=== PATIENT | female | born 1990 | race African-American/Black ===

== ENCOUNTER 2016-05-15 23:12 | Inpatient (IN) | payer OTHER ==
--- NOTE | ~2016-05-15 | HP ---
Unit #: [id number] #: [id number] Patient: SARAH BETH RHODES [id number] [address] [place], [place] [address] [id number] I MR#: [id number] NAME: SARAH BETH RHODES ROOM: [facility] Age: 25 Sex: F Admission Date: 05/16/2016 : 1990 Attending Physician: Chika Parry M.D. Primary Care Physician: [facility] HISTORY AND PHYSICAL ADDENDUM I spoke with Dr. Mendez's group, and ventilator is currently being adjusted. Will keep the patient's temperature about 95 degrees. The patient's mother arrived. I discussed with the mother and family present the results of the CT scan. I told them the patient's prognosis was poor, that she likely would not survive. I also told them that she was likely brain at this time but would have neurology see her in the morning. Critical care time spent in evaluating this patient was 40 minutes. Dictated by Gretchen Law/romina TD: 05/16/2016 05:04 JOB #: [id number] HISTORY AND PHYSICAL X Chika Parry MD HISTORY AND PHYSICAL
--- NOTE | ~2016-05-15 | DS ---
Unit #: [id number] #: [id number] Patient: SARAH BETH GAITAN [id number] [address] [address] [id number] I MR#: [id number] NAME: SARAH BETH GAITAN. ROOM: [facility] Age: Sex: F Admission Date: 05/16/2016 : 1990 Discharge Date: 05/17/2016 Attending Physician: Krystle Watson M.D. Primary Care Physician: [facility] DISCHARGE SUMMARY SUMMARY PRINCIPAL DIAGNOSES 1. Brain secondary to sever anoxic brain injury. 2. Acute hypoxic respiratory failure. 3. Mixed respiratory metabolic acidosis, severe. 4. Polysubstance overdose, including opiates, cocaine, benzodiazepines and TCAs. 5. Hypernatremia. 6. Shock liver. 7. Hypothermia. 8. Subarachnoid hemorrhage. 9. Persistent hypoglycemia. CONSULTANTS Dr. Brnanon, neurology. Dr. Mendez, pulmonology. DIAGNOSTIC DATA IMAGING: CT scan of the head without contrast on 05/16/2016 with loss of telles/white matter differentiation and effacement of the basilar cistern. Subarachnoid hemorrhage associated with cerebellar regions bilaterally. Multiple x-rays revealing right and left basilar pneumonia. Brain perfusion imaging with lack of intracranial blood flow. CLINICAL HISTORY/HOSPITAL COURSE Ms. Gaitan is a 25-year-old female brought to the emergency department after being found unresponsive and pulseless at home. The patient went a total of six rounds of cardiopulmonary resuscitation prior to regaining pulse. She had been intubated in the field and was subsequently admitted to the ICU. During workup in the emergency department the patient was found to have significant mixed respiratory and metabolic acidosis with a pH of 6.[address] scan of the head in the emergency department revealed significant anoxic brain injury with loss of telles/white matter differentiation. The patient clinically demonstrated signs of significant brain . The patient was maintained on the ventilator per Dr. Mendez and placed on empiric antibiotics for pneumonia. Dr. Brannon was consulted and per family's wishes the patient underwent Unit #: [id number] #: [id number] Patient: SARAH BETH GAITAN brain perfusion study, which did not reveal any intracranial brain flow, which was consistent with the patient's exam. This has all been discussed with the patient's family. The patient subsequently on 05/16/2016 at 14:19 in the afternoon. Dictated by... Krystle Watson M.D. ALAINA/carlos TD: 05/18/2016 10:52 JOB #: [id number] DISCHARGE SUMMARY X Krystle Watson MD X DISCHARGE SUMMARY
--- NOTE | ~2016-05-15 | CR72 ---
[facility] A Service of [facility] & [facility] RADIOLOGY TEXT RESULTS PATIENT: SARAH BETH RHODES LOCATION: [address] : [birth year] UNIT #: [id number] AGE: [address]: Krystle Watson MD SEX: F ORDER DR: [id number] [facility] [address] [place], [place] [address] [id number] I MR#: [id number] Acc #: [id number] NAME: SARAH BETH RHODES. : 1990 SEX: F STUDY DATE/TIME: 05/16/2016 6:41 UNIT: [facility] ROOM: [facility] STUDY DESCRIPTION: CR Chest Single View Portable Attending Physician: Chika Parry M.D. Ordering Physician: Chika Parry M.D. [facility] REPORT This report is preliminary unless electronic signature is present EXAM Portable chest 05/16 INDICATIONS Respiratory failure. History of resuscitated arrest status post overdose. FINDINGS AP portable chest compared with 05/15/2016. Endotracheal tube is in the right mainstem bronchus and should be retracted about 3 cm. There is continued dense consolidation in the left hhs-ku-wvnus lung and there is developing infiltrate in the right middle lobe. This could certainly be secondary to aspiration. No pneumothorax is seen. Dictated by... Gama Gray Jr., M.D. THIS IS AN ELECTRONICALLY VERIFIED REPORT Gama Gray Jr., M.D. at 05/16/2016 7:34 AM ANGELIA/flor TD: 05/16/2016 07:12 JOB #: [id number] MEDICAL IMAGING REPORT COPY
--- NOTE | ~2016-05-15 | EKG ---
PATIENT: SARAH BETH RHODES UNIT #: [id number] Ventricular Rate: 79 BPM Atrial Rate: 79 BPM P-R Interval: 192 ms QRS Duration: 136 ms Q-T Interval: 440 ms QTC Calculation(Bezet): 504 ms P Edmondson: 84 degrees Calculated R Edmondson: 64 degrees Calculated T Edmondson: 14 degrees Diagnosis Line: Normal sinus rhythm Diagnosis Line: Non-specific intra-ventricular conduction block Diagnosis Line: Abnormal ECG Diagnosis Line: No previous ECGs available Diagnosis Line: Confirmed by SITA ALEJANDRO MD ([id number]) on Diagnosis Line: 05/16/2016 2:49:47 PM INTERPRETING MD: FERNANDA
--- NOTE | ~2016-05-15 | CR71 ---
[facility] A Service of [facility] & [facility] RADIOLOGY TEXT RESULTS PATIENT: SARAH BETH RHODES LOCATION: [facility] CICCU3-20 : 90 UNIT #: [id number] AGE: [address]: Chika Parry MD SEX: F ORDER DR: [id number] [facility] [address] [place], [place] [address] [id number] E MR#: [id number] Acc #: [id number] NAME: SARAH BETH RHODES. : 1990 SEX: F STUDY DATE/TIME: 05/15/2016 23:54 UNIT: [facility] ROOM: STUDY DESCRIPTION: CR Chest Single View Attending Physician: Pedro Gutierrez M.D. Ordering Physician: Pedro Gutierrez M.D. Primary Care Physician: [facility] MEDICAL IMAGING REPORT This report is preliminary unless electronic signature is present EXAM Frontal chest, 05/15/2016 INDICATIONS 25-year-old female intubated, full arrest, overdose, found down. Symptoms began tonight. TECHNIQUE Frontal chest was performed. COMPARISON 05/01/2016 FINDINGS Transcutaneous pacemaker pad projects over the right hemithorax. ET tube tip is difficult to localize with respect to the thais. It is probably about 1.5 cm proximal to the level of the thais. Lung volumes are low. There is dense consolidation in the retrocardiac left lower lobe and there is a small left effusion. Air bronchograms are present in the lower lung zone and mid lung zone. Given the provided history, this may represent aspiration pneumonia and a superimposed effusion. No pneumothorax. No consolidation on the right. Postop changes of the clavicular head on the left noted. IMPRESSION 1. Relationship of the ET tube tip and thais is difficult to ascertain, but the tip is thought to be about 1.5 cm above the level of the thais. No pneumothorax. 2. Dense consolidation in the left lower lobe and, to a lesser extent, mid lung zone with a small left effusion. Imaging features are most characteristic of pneumonia and suspicious for aspiration pneumonia given provided history. 3. Right lung is essentially clear. Postop changes of the medial STS. [facility] A Service of [facility] & [facility] RADIOLOGY TEXT RESULTS PATIENT: SARAH BETH RHODES LOCATION: [address]20 : [birth year] UNIT #: [id number] AGE: [address]: Chika Parry MD SEX: F ORDER DR: clavicle on the left. STAT * RESULT Dictated by... Don Ramirez M.D. THIS IS AN ELECTRONICALLY VERIFIED REPORT Don Ramirez M.D. at 05/16/2016 5:18 AM LEANN/karen TD: 05/16/2016 00:18 JOB #: [id number] MEDICAL IMAGING REPORT COPY
--- NOTE | ~2016-05-15 | CR72 ---
[facility] A Service of [facility] & [facility] RADIOLOGY TEXT RESULTS PATIENT: SARAH BETH RHODES LOCATION: [address]20 : [birth year] UNIT #: [id number] AGE: [address]: Krystle Watson MD SEX: F ORDER DR: [id number] [facility] [address] [place], [place] [address] [id number] I MR#: [id number] Acc #: [id number] NAME: SARAH BETH RHODES. : 1990 SEX: F STUDY DATE/TIME: 05/16/2016 9:10 UNIT: [facility] ROOM: [facility] STUDY DESCRIPTION: CR Chest Single View Portable Attending Physician: Krystle Watson M.D. Ordering Physician: Katharine Mendez M.D. Primary Care Physician: [facility] MEDICAL IMAGING REPORT This report is preliminary unless electronic signature is present EXAM Portable chest 05/16/2016 INDICATION Endotracheal tube placement. Shortness of air. Respiratory failure. Status post overdose. FINDINGS AP portable chest compared with earlier this morning. Endotracheal tube has been repositioned. It is now above the thais. There is still some infiltrate in the left xlt-bj-euksj lung and to a lesser degree in the right base. No pneumothorax is seen. Lucency projects over the left breast. Please correlate for any evidence of soft tissue injury. Dictated by... Gama Gray Jr., M.D. THIS IS AN ELECTRONICALLY VERIFIED REPORT Gama Gray Jr., M.D. at 05/16/2016 3:08 PM ANGELIA/hemal TD: 05/16/2016 10:51 JOB #: [id number] MEDICAL IMAGING REPORT COPY
--- NOTE | ~2016-05-15 | CO ---
Unit #: [id number] #: [id number] Patient: SARAH BETH RHODES [id number] [facility] [address] [place], [place] [address] [id number] I MR#: [id number] NAME: SARAH BETH RHODES. ROOM: [facility] Age: 25 Sex: F Admission Date: 05/16/2016 : 1990 Attending Physician: Krystle Watson M.D. Primary Care Physician: [facility] Consultation Date: 05/16/2016 CONSULTATION REPORT CONSULTING PHYSICIAN Dr. Chika Parry REASON FOR CONSULT Questionable brain . PATIENT IDENTIFICATION This is a 25-year-old, unknown handedness, -Nepalese female with a past medical history of CVA in March 2016, polysubstance abuse, who presented to [facility] with admission for resuscitated arrest. Apparently, the patient was last seen normal around 9 p.m. last evening and she was found at 10:30 to be unresponsive by, I'm assuming family or friends though I don't know the details. EMS was called and the patient was found to be in asystole. EMS started CPR and ALS, intubated the patient in the field. She apparently developed ventricular tachycardia and ventricular fibrillation that required defibrillation five times. She did achieve ROSC en route. She was brought to [facility] ER at 11 p.m. and lost her pulse again at that time. She was resuscitated for five minutes in this emergency room. She has not received any sedation. She is on pressors. She is having trouble maintaining her blood pressure. She is hypoglycemic. She was initially hyperglycemic. She is hypothermic and she is on a Brandon hugger and she is tachycardic. On her neurologic exam, she has no response to noxious stimuli. Cecilia Coma Scale of 2T. No corneals, no oculocephalic reflex. Pupils are 5 mm and fixed, and no response to noxious stimuli with very deep nail bed pressure. Urine tox screen is positive for benzodiazepines, cocaine, opiates and TCA. She had a head CT done in the ED that shows evidence of severe anoxic brain injury and likely subarachnoid hemorrhage involving the bilateral cerebellar folia. Call was made to [facility] but she is not felt to be a candidate for intervention given her poor prognosis. PAST MEDICAL HISTORY 1. Hypertension. 2. Polysubstance abuse with previous multiple overdoses including one recent as 24 hours ago when she was seen at [facility] apparently. 3. CVA at [facility] in March 2016. Looking in [place], she had a negative CT angiogram of the head and neck with no evidence of aneurysm at that time. 4. Hyperlipidemia. Unit #: [id number] #: [id number] Patient: SARAH BETH RHODES 5. Surgery for left clavicular fracture. ALLERGIES No known drug allergies. HOME MEDICATIONS Unknown. SOCIAL HISTORY Apparently she does not smoke tobacco or use alcohol but has a history of polysubstance abuse and multiple overdoses. FAMILY HISTORY Unknown. REVIEW OF SYSTEMS Unable to obtain from the patient given her mental status. PHYSICAL EXAMINATION VITAL SIGNS: Temperature - she is 94.6 with last documentation. She is on a Brandon hugger. Pulse 133, respirations 28, blood pressure 91/53 on multiple pressors. Oxygen saturation 91% on the ventilator. Height 5 feet 1 inch, weight 152 pounds. NEUROLOGICAL EXAM: The patient is unresponsive on the ventilator. Cecilia Coma Scale of 2T. She has no response to noxious stimuli. No brain stem reflexes. CRANIAL NERVE EXAM: She has negative oculocephalic reflex. Negative corneals. Pupils are 5 mm and fixed. Unable to assess sensation on the face and scalp. No facial asymmetry seen. Unable to assess hearing, tongue, uvula or palate, head turning or shoulder shrug. Neck appears to be supple. MOTOR EXAM: She is flaccid with no response to noxious stimuli in all extremities. COORDINATION: Unable to assess. DIAGNOSTIC STUDIES IMAGING: CT head without contrast on 05/16/16. Impression - per radiologist's report, abnormal examination. Imaging features are most characteristic of anoxic brain injury and loss of telles-white differentiation. Significant effacement of the basilar cisterns. At this point, no midline shift or hydrocephalus. Probable subarachnoid hemorrhage associated with the cerebellar folia bilaterally. No extraaxial fluid collection identified. Multifocal sinus disease. LABORATORY: Max troponin of 0.40, sodium 153, potassium 3.9, chloride 117, CO2 26, glucose 77, BUN 13, creatinine 1.1, estimated GFR above 60, calcium 8.3, AST 290, ALT 195, alkaline phos. 67, total protein 6.4, albumin 3.3. White blood cell count 5.5, hemoglobin 11.6, hematocrit 35.1, platelet count 308, lactic acid 5.2. Urine drug screen positive for benzodiazepines, cocaine, opiates and TCA. Initial lactic acid 10.7. Beta hcg screen negative. Initial troponin less than 0.05. Unit #: [id number] #: [id number] Patient: SARAH BETH RHODES IMPRESSION 1. Severe anoxic brain injury. 2. Status post resuscitated arrest. 3. Likely subarachnoid hemorrhage, no evidence of aneurysm seen on CT angiogram from March 2016 at [facility]. 4. History of cerebrovascular accident, details unknown. 5. Polysubstance abuse. 6. Acute kidney injury. PLAN Discussed the case with Dr. Brannon. Discussed with the mother at the bedside. Prognosis is very poor at this time given clinical exam and imaging. We will follow along with you closely. The patient is very critical. She is currently a Full Code. I did discuss code status with the patient's mother at the bedside and at this time she is currently a Full Code. Please call for any questions or issues. We thank you very much for allowing us to assist in the care of this patient. Dictated by... Julio WhitingPRobertoRArmen. for James Brannon M.D. SANJAY/romina TD: 05/16/2016 11:25 JOB #: [id number] CONSULTATION REPORT X Malena Mary APRN X CONSULTATION REPORT
--- NOTE | ~2016-05-15 | NM13 ---
[facility] A Service of [facility] & [facility] RADIOLOGY TEXT RESULTS PATIENT: SARAH BETH RHODES LOCATION: [place] [address]-20 : [birth year] UNIT #: [id number] AGE: [address]: Krystle Watson MD SEX: F ORDER DR: [id number] [facility] [address] [place], [place] [address] [id number] I MR#: [id number] Acc #: [id number] NAME: SARAH BETH RHODES. : 1990 SEX: F STUDY DATE/TIME: 05/16/2016 14:07 UNIT: [facility] ROOM: [facility] STUDY DESCRIPTION: OR Brain Imaging [facility] Flow Attending Physician: Krystle Watson M.D. Ordering Physician: Krystle Watson M.D. Primary Care Physician: [facility] MEDICAL IMAGING REPORT This report is preliminary unless electronic signature is present EXAM Nuclear medicine brain imaging for flow. HISTORY Recent cardiac arrest with resuscitation. Evaluate for brain . TECHNIQUE The patient was bolus injected with 27.9 mCi of technetium 99m DTPA. Imaging was performed over the head in multiple projections. FINDINGS No intracranial flow is seen. Findings consistent with brain . IMPRESSION No intracranial flow is identified. STAT * RESULT Dictated by... Gama Ramos M.D. THIS IS AN ELECTRONICALLY VERIFIED REPORT Gama Ramos M.D. at 05/16/2016 4:10 PM ANGE/rikki TD: 05/16/2016 14:26 JOB #: [id number] MEDICAL IMAGING REPORT COPY
--- NOTE | ~2016-05-15 | HP ---
Unit #: [id number] #: [id number] Patient: SARAH BETH RHODES [id number] [place] [address] [facility]. [place], [place] [address] [id number] I MR#: [id number] NAME: SARAH BETH RHODES. ROOM: [facility] Age: 25 Sex: F Admission Date: 05/16/2016 : 1990 Attending Physician: Chika Parry M.D. Primary Care Physician: [facility] HISTORY AND PHYSICAL CHIEF COMPLAINT Resuscitated arrest. HISTORY This 25-year-old female with hypertension, history of CVA per family, and polysubstance abuse is admitted as a resuscitated arrest. Patient was last seen normal around 9:00 p.m. last evening. At 10:30 p.m., she was unarousable. EMS was called and the patient was found to be in asystole. She was treated by EMS, intubated in the field, and developed ventricular tachycardia and ventricular fibrillation requiring defibrillation x5. Achieved ROSC en route. She was brought to this emergency department at 11:00 p.m. last evening, lost her pulse again. Was resuscitated after five minutes in the ER. Currently, on examination, the patient is hypotensive, hypothermic, and has no brainstem reflexes. In reviewing her lab data, she is hyperglycemic, which is new, and has a severe metabolic and respiratory acidosis. Urine tox screen is positive for multiple substances including benzos, cocaine, opiates, and TCA. Head CT performed shows evidence of anoxic brain injury and probable subarachnoid hemorrhage, bilateral cerebellar folia. A call currently is made to neurosurgery, but the patient is essentially brain at this point on exam. Family tells me the patient does have a history of polysubstance abuse and has overdosed four times over the past six months or so. Was seen 24 hours ago at the [facility] after an overdose and was discharged after observation. The ER physician did speak with neurosurgery at [facility] given findings on current CT scan. The patient, at this point in time, is brain and has evidence of extensive anoxic injury of the brain on CT scan. It is unsure whether or not there truly is a subarachnoid hemorrhage, but in any event, the patient is a nonsurgical candidate. PAST MEDICAL HISTORY 1. Hypertension per old records. 2. Polysubstance use with previous overdoses. 3. Previous CVA at [facility], 03/2016. Details are unknown. 4. Hyperlipidemia. 5. Surgery for left clavicular fracture. ALLERGIES No known drug allergies. Unit #: [id number] #: [id number] Patient: SARAH BETH RHODES HOME MEDICATIONS Unknown, possibly Neurontin and possible antihypertensive medications. FAMILY HISTORY Negative for heart disease. SOCIAL HISTORY The patient is living between family members. She does not smoke or use alcohol. Does have a history of drug abuse, particularly heroin. REVIEW OF SYSTEMS Impossible to obtain as patient currently is unresponsive on a ventilator. PHYSICAL EXAMINATION GENERAL APPEARANCE: Unresponsive, 25-year-old female on a ventilator. VITAL SIGNS: Temperature 87.6, pulse is 67, current blood pressure is 98/55 on Levophed, and O2 saturation 91% on 100% FIO2. HEENT: Eyes: Pupils are dilated and do not react. Negative doll's and negative corneals. Pharynx: Patient is orally intubated. NECK: Supple. CHEST: Some rhonchi noted. CARDIAC: Normal S1 and S2 without murmur. ABDOMEN: Bowels sounds are absent. Mildly distended, but no tenderness, hepatosplenomegaly, or masses. EXTREMITIES: Without edema. NEUROLOGIC: The patient is unresponsive on a ventilator. She is not breathing above the ventilator. She does not have a gag. Her pupils are fixed and dilated and no corneals or doll's. Plantar reflexes are not present. She does not react to noxious stimuli. DIAGNOSTIC STUDIES ADMISSION LABORATORY: Hematocrit is 29.4, MCV 101, white blood count 14.3, and normal platelet count. INR is 1.3 and PTT is 27.8. SMA-12: Glucose is 497, creatinine 1.7, CO2 20, calcium 7.5, protein 4.9, albumin is 2.6, AST 177, and ALT 147. Lactic acid is 10.7. Beta HCG is negative. Cardiac markers are negative. Urine tox screen positive for benzos, cocaine, opiates, and TCA. Urinalysis: 2+ protein without white cells or red cells. ABG: pH 6.86, pCO2 77, pO2 358 on a tidal volume of 500, AC 12, FIO2 100%, and PEEP of 5. IMAGING: Chest x-ray suspicious for aspiration pneumonia, left greater than right. Head CT shows evidence of anoxic brain injury. Probable subarachnoid hemorrhage bilateral cerebellar folia. CARDIOVASCULAR: EKG: Normal sinus rhythm, rate 80, nonspecific ST wave abnormalities, and interventricular conduction delay. ASSESSMENT 1. Resuscitated arrest, likely secondary to a drug overdose. There are no brainstem reflexes at present. 2. Possible brain following resuscitated arrest. CT scan shows extensive anoxic brain injury. Questionable subarachnoid hemorrhage, bilateral cerebellar folia. Case was discussed with neurosurgery at [facility]. She is not felt to be a surgical candidate. 3. Aspiration pneumonia. 4. Polysubstance abuse. Unit #: [id number] #: [id number] Patient: SARAH BETH RHODES 5. History of CVA. Admitted to [facility] 03/2016. Will obtain records. 6. History of hypertension, now hypotensive. 7. Hyperglycemia, which could be reactive. Repeat Accu-Chek was 350 and I will go ahead and treat this. 8. Acute kidney injury. PLANS 1. Bear Hugger to increase patient's temperature. Her current temperature is 87.6. 2. Levaquin and Zosyn. 3. Neurology consultation in the morning. 4. Will ask for a pulmonary consultation in the morning. A call was made in ER to Dr. Mendez, currently awaiting a call-back. 5. Sliding scale insulin, Accu-Cheks, and hemoglobin A1c. 6. DVT and gastritis prophylaxes. 7. Continue IV fluids for now. 8. Serial cardiac enzymes. 9. Recheck all labs in the morning. 10. Repeat ABG now. 11. Old records. 12. Prognosis is guarded to poor. I did discuss details with available family, but, at that point in time, the CT scan had not returned. Will discuss further with family. Dictated by Gretchen Law/jamel TD: 05/16/2016 05:04 JOB #: [id number] HISTORY AND PHYSICAL X Chika Parry MD X HISTORY AND PHYSICAL
--- NOTE | ~2016-05-15 | CT71 ---
[facility] A Service [facility] RADIOLOGY TEXT RESULTS PATIENT: SARAH BETH RHODES LOCATION: [place] [address]20 : [birth year] UNIT #: [id number] AGE: [address]: Krystle Watson MD SEX: F ORDER DR: [id number] [facility] [address] [place], [place] [address] [id number] I MR#: [id number] #: [id number] NAME: SARAH BETH RHODES. : 1990 SEX: F STUDY DATE/TIME: 05/16/2016 1:23 UNIT: [facility] ROOM: [facility] STUDY DESCRIPTION: CT Head Wo Contrast Attending Physician: Krystle Watson M.D. Ordering Physician: Pedro Gutierrez M.D. Primary Care Phys[facility] RE[facility] This report is preliminary unless electronic signature is present EXAM Head CT, no contrast, 05/16/2016 INDICATIONS Overdose, full arrest, unresponsive today. TECHNIQUE Noncontrast CT of the brain was performed. This CT exam was performed with one or more of the following radiation dose reduction techniques: Automatic exposure control, adjustment of mA and/or kV according to patient size, and iterative reconstruction. COMPARISON 03/13/[address] BRAIN: The examination is markedly abnormal. There is generalized cerebral edema most characteristic of anoxic brain injury, given the provided history. Probable small amount of subarachnoid hemorrhage associated with the folia of the cerebellar hemispheres bilaterally. There is loss of generalized telles-white differentiation throughout the brain. There is significant effacement of the basilar cisterns and narrowing of the lateral ventricles. A portion of the fourth ventricle is partially visualized along with the third ventricle, however, they are significantly compromised. There is no hydrocephalus at this point. No midline shift or extraaxial fluid collection. Globes are intact. Bones intact. There is multifocal chronic-appearing sphenoid and ethmoid sinus disease. IMPRESSION 1. Abnormal examination. Results called to Dr. Gutierrez in the [facility] A Service of [facility] RADIOLOGY TEXT RESULTS PATIENT: SARAH BETH RHODES LOCATION: [address] : [birth year] UNIT #: [id number] AGE: [address]: Krystle Watson MD SEX: F ORDER DR: emergency department at the time of this dictation. Imaging features are most characteristic of anoxic brain injury. Loss of telles-white differentiation as described. Significant effacement of the basilar cisterns. At this point, no midline shift or hydrocephalus. 2. Probable subarachnoid hemorrhage associated with the cerebellar folia bilaterally. 3. No extraaxial fluid collection identified. 4. Multifocal sinus disease. STAT * RESULT Dictated by... Don Ramirez M.D. THIS IS AN ELECTRONICALLY VERIFIED REPORT Don Ramirez M.D. at 05/19/2016 9:44 AM LEANN/karen TD: 05/16/2016 01:57 JOB #: [id number] MEDICAL IMAGING REPORT COPY
[2016-05-15 23:27] LABS: ARTERIAL BLD GAS O2 SATURATION 98.6 % (90.0-100.0); ARTERIAL BLOOD GAS MET HB 0.8 %sat (0.0-2.0)
[2016-05-15 23:28] LABS: ARTERIAL BLOOD GAS PCO2 77.4 mmHg (35.0-45.0); ARTERIAL BLOOD GAS pH 6.867 (7.350-7.450)
[2016-05-15 23:29] LABS: ARTERIAL BLOOD GAS ART SITE RIGHT FEMORAL; ARTERIAL BLOOD GAS DELIVERY VENT; ARTERIAL BLOOD GAS VENT MODE AC; ARTERIAL DRAW? YES
[2016-05-16 00:08] LABS: POC - CKMB 2.8 ng/mL (0.0-7.9); POC - TROPONIN <0.05 ng/mL (<=0.05)
[2016-05-16 00:11] LABS: BASOPHIL# 0.1 X10e3 (0-0.3); BASOPHIL% 0.7 % (0-2.5); EOSINOPHIL# 0.3 X10e3 (0-0.7); HEMATOCRIT 29.5 % (35.0-45.0); HEMOGLOBIN 8.9 gm/dL (12.0-16.0); LYMPHOCYTE# 4.1 X10e3 (1.0-3.5); LYMPHOCYTE% 28.9 % (17.0-45.0); MEAN CELL VOLUME 101.2 FL (83-96); MEAN CORPUSCULAR HEMOGLOBIN 30.6 PG (28-34); MEAN CORPUSCULAR HGB CONC 30.2 g/dL (30-36); MONOCYTE# 0.2 X10e3 (0-1.0); MONOCYTE% 1.2 % (3.0-12.0); NEUTROPHIL# 9.6 X10e3 (1.5-7.1); NEUTROPHIL% 67.2 % (40-75); PLATELET COUNT 185 X10e3 (140-420); RED BLOOD COUNT 2.91 X10e (3.90-5.30); RED CELL DISTRIBUTION WIDTH 14.2 % (11.0-15.5); WHITE BLOOD COUNT 14.3 X10e3 (4.0-10.5)
[2016-05-16 00:13] LABS: DIFF IND NO
[2016-05-16 00:25] LABS: ALBUMIN SERUM 2.6 g/dL (3.5-5.0); BILIRUBIN, DIRECT 0.1 mg/dL (0.0-0.2); BILIRUBIN,INDIRECT 0.3 mg/dL (0.0-0.9); BILIRUBIN,TOTAL 0.4 mg/dL (0.2-2.0); BUN/CREATININE RATIO 7.64; CALCIUM SERUM 7.5 mg/dL (8.4-10.2); CREATININE SERUM 1.7 mg/dL (0.6-1.4); GLOM FILT RATE Estimated 47.1 mL/min (>60); PROTEIN TOTAL SERUM 4.9 g/dL (6.0-8.3)
[2016-05-16 00:28] LABS: INR 1.3; PARTIAL THROMBOPLASTIN TIME 27.8 SECONDS (23.5-31.3); PROTHROMBIN TIME (PATIENT) 13.4 SECONDS (9.6-11.5)
[2016-05-16 00:30] LABS: URINE SOURCE CLEAN CATCH
[2016-05-16 00:36] LABS: URINE APPEARANCE CLEAR; URINE BILIRUBIN NEG (NEG); URINE BLOOD NEG (NEG); URINE COLOR YELLOW; URINE GLUCOSE NEG (NEG); URINE KETONE NEG (NEG); URINE LEUKOCYTE ESTERASE NEG (NEG); URINE NITRATE NEG (NEG); URINE PH 5.5 (5-8); URINE PROTEIN 2+ (NEG); URINE SPECIFIC GRAVITY 1.017 (1.003-1.035); URINE UROBILINOGEN 0.2 MG/DL (NEG)
[2016-05-16 00:38] LABS: URINE BACTERIA AUWI NEG (NEGATIVE); URINE SQUAMOUS EPITHELIAL CELL FEW /[HPF]; UWBCS1 AUWI 0-2 (0-5)
[2016-05-16 00:46] LABS: AMPHETAMINE NEG (NEG); BARBITURATES NEG (NEG); BENZODIAZEPINES POS (NEG); COCAINE POS (NEG); MARIJUANA NEG (NEG); OPIATES POS (NEG); TRICYCLIC ANTIDEPRESSANTS POS (NEG); U METHADONE NEG (NEG)
[2016-05-16 00:57] LABS: CULTURE INDICATED? NO
[2016-05-16 02:04] LABS: ARTERIAL BLD GAS O2 SATURATION 87.5 % (90.0-100.0); ARTERIAL BLOOD GAS CARBOXY HB 0.3 %sat (0.0-9.0); ARTERIAL BLOOD GAS HCO3 21.9 mmol/L; ARTERIAL BLOOD GAS MET HB 0.5 %sat (0.0-2.0)
[2016-05-16 02:05] LABS: ARTERIAL BLOOD GAS ART SITE LEFT FEMORAL; ARTERIAL BLOOD GAS DELIVERY VENT; ARTERIAL BLOOD GAS PCO2 65.6 mmHg (35.0-45.0); ARTERIAL BLOOD GAS PO2 66.4 mmHg (80.0-100); ARTERIAL BLOOD GAS VENT MODE AC; ARTERIAL BLOOD GAS pH 7.131 (7.350-7.450); ARTERIAL DRAW? YES
[2016-05-16 03:03] LABS: POC - CKMB 20.4 ng/mL (0.0-7.9); POC - TROPONIN 0.07 ng/mL (<=0.05)
[2016-05-16 04:17] LABS: ARTERIAL BLD GAS O2 SATURATION 97.5 % (90.0-100.0); ARTERIAL BLOOD GAS CARBOXY HB 0.4 %sat (0.0-9.0); ARTERIAL BLOOD GAS MET HB 0.9 %sat (0.0-2.0)
[2016-05-16 04:19] LABS: ARTERIAL BLOOD GAS ART SITE LEFT BRACHIAL; ARTERIAL BLOOD GAS DELIVERY VENT; ARTERIAL BLOOD GAS PCO2 57.1 mmHg (35.0-45.0); ARTERIAL BLOOD GAS VENT MODE AC; ARTERIAL DRAW? YES
[2016-05-16 07:04] LABS: BASOPHIL% 0.3 % (0-2.5); EOSINOPHIL% 0.2 % (0.0-7.0); HEMATOCRIT 35.1 % (35.0-45.0); LYMPHOCYTE# 0.6 X10e3 (1.0-3.5); LYMPHOCYTE% 11.3 % (17.0-45.0); MEAN CORPUSCULAR HEMOGLOBIN 30.9 PG (28-34); MEAN CORPUSCULAR HGB CONC 33.1 g/dL (30-36); MEAN PLATELET VOLUME 8.7 FL (6.5-11.5); MONOCYTE# 0.2 X10e3 (0-1.0); MONOCYTE% 3.6 % (3.0-12.0); NEUTROPHIL# 4.6 X10e3 (1.5-7.1); NEUTROPHIL% 84.6 % (40-75); RED BLOOD COUNT 3.76 X10e (3.90-5.30); RED CELL DISTRIBUTION WIDTH 13.6 % (11.0-15.5)
[2016-05-16 07:07] LABS: HEMOGLOBIN 11.6 gm/dL (12.0-16.0); MEAN CELL VOLUME 93.3 FL (83-96); PLATELET COUNT 308 X10e3 (140-420); WHITE BLOOD COUNT 5.5 X10e3 (4.0-10.5)
[2016-05-16 07:09] LABS: DIFF IND NO
[2016-05-16 08:35] LABS: ALBUMIN SERUM 3.3 g/dL (3.5-5.0); ALKALINE PHOSPHATASE 67 U/L (32-92); ALT (SGPT) 195 U/L (10-40); AST (SGOT) 290 U/L (10-42); BILIRUBIN,TOTAL 0.1 mg/dL (0.2-2.0); BLOOD UREA NITROGEN 13 mg/dL (9-23); BUN/CREATININE RATIO 11.81; CALCIUM SERUM 8.3 mg/dL (8.4-10.2); CARBON DIOXIDE 26 mmol/L (22-31); CHLORIDE 117 mmol/L (100-111); CREATININE SERUM 1.1 mg/dL (0.6-1.4); GLOM FILT RATE Estimated ABOVE60 mL/min (>60); GLUCOSE FASTING 77 mg/dL (70-110); POTASSIUM 3.9 mmol/L (3.5-5.1); PROTEIN TOTAL SERUM 6.4 g/dL (6.0-8.3)
[2016-05-16 08:36] LABS: SODIUM 153 mmol/L (135-145)
[2016-05-16 09:11] LABS: ARTERIAL BLD GAS O2 SATURATION 96.2 % (90.0-100.0); ARTERIAL BLOOD GAS ALLEN TEST NORMAL; ARTERIAL BLOOD GAS ART SITE RIGHT RADIAL; ARTERIAL BLOOD GAS CARBOXY HB 0.4 %sat (0.0-9.0); ARTERIAL BLOOD GAS DELIVERY VENT; ARTERIAL BLOOD GAS HCO3 26.9 mmol/L; ARTERIAL BLOOD GAS MET HB 0.9 %sat (0.0-2.0); ARTERIAL BLOOD GAS PO2 91.2 mmHg (80.0-100); ARTERIAL BLOOD GAS VENT MODE AC; ARTERIAL DRAW? YES
[2016-05-16 10:48] LABS: %MB 3.4 % (0.0-4.0); MB 59.2 ng/ml
[2016-05-16 13:00] LABS: ALBUMIN SERUM 3.1 g/dL (3.5-5.0); BILIRUBIN,TOTAL 0.4 mg/dL (0.2-2.0); BUN/CREATININE RATIO 10.71; CALCIUM SERUM 7.7 mg/dL (8.4-10.2); CREATININE SERUM 1.4 mg/dL (0.6-1.4); GLOM FILT RATE Estimated 58.9 mL/min (>60); MAGNESIUM 1.6 mg/dL (1.6-3.0); PHOSPHOROUS 1.1 mg/dL (2.5-4.6); POTASSIUM 3.9 mmol/L (3.5-5.1); PROTEIN TOTAL SERUM 5.9 g/dL (6.0-8.3)
[2016-05-16 18:05] LABS: BASOPHIL% 0.3 % (0-2.5); EOSINOPHIL% 0.1 % (0.0-7.0); HEMATOCRIT 29.8 % (35.0-45.0); HEMOGLOBIN 9.9 gm/dL (12.0-16.0); LYMPHOCYTE# 0.5 X10e3 (1.0-3.5); LYMPHOCYTE% 7.2 % (17.0-45.0); MEAN CELL VOLUME 92.6 FL (83-96); MEAN CORPUSCULAR HEMOGLOBIN 30.9 PG (28-34); MEAN CORPUSCULAR HGB CONC 33.3 g/dL (30-36); MEAN PLATELET VOLUME 8.6 FL (6.5-11.5); MONOCYTE# 0.3 X10e3 (0-1.0); MONOCYTE% 3.6 % (3.0-12.0); NEUTROPHIL# 6.7 X10e3 (1.5-7.1); NEUTROPHIL% 88.8 % (40-75); PLATELET COUNT 237 X10e3 (140-420); RED BLOOD COUNT 3.22 X10e (3.90-5.30); RED CELL DISTRIBUTION WIDTH 13.3 % (11.0-15.5); WHITE BLOOD COUNT 7.5 X10e3 (4.0-10.5)
[2016-05-16 18:13] LABS: DIFF IND NO
[2016-05-16 18:21] LABS: ALBUMIN SERUM 2.8 g/dL (3.5-5.0); BILIRUBIN,TOTAL 0.1 mg/dL (0.2-2.0); BUN/CREATININE RATIO 11.42; CALCIUM SERUM 8.2 mg/dL (8.4-10.2); CREATININE SERUM 1.4 mg/dL (0.6-1.4); GLOM FILT RATE Estimated 58.9 mL/min (>60); POTASSIUM 3.8 mmol/L (3.5-5.1); PROTEIN TOTAL SERUM 5.6 g/dL (6.0-8.3)
[2016-05-16 21:34] LABS: BASOPHIL% 0.4 % (0-2.5); EOSINOPHIL% 0.2 % (0.0-7.0); HEMATOCRIT 29.6 % (35.0-45.0); HEMOGLOBIN 9.8 gm/dL (12.0-16.0); LYMPHOCYTE# 1.2 X10e3 (1.0-3.5); LYMPHOCYTE% 14.5 % (17.0-45.0); MEAN CELL VOLUME 92.3 FL (83-96); MEAN CORPUSCULAR HEMOGLOBIN 30.5 PG (28-34); MEAN PLATELET VOLUME 8.6 FL (6.5-11.5); MONOCYTE# 0.3 X10e3 (0-1.0); NEUTROPHIL# 6.8 X10e3 (1.5-7.1); NEUTROPHIL% 80.9 % (40-75); PLATELET COUNT 239 X10e3 (140-420); RED CELL DISTRIBUTION WIDTH 13.7 % (11.0-15.5); WHITE BLOOD COUNT 8.4 X10e3 (4.0-10.5)
[2016-05-16 21:35] LABS: DIFF IND NO
[2016-05-16 21:38] LABS: INR 1.3; PARTIAL THROMBOPLASTIN TIME 27.1 SECONDS (23.5-31.3); PROTHROMBIN TIME (PATIENT) 14.1 SECONDS (9.6-11.5)
[2016-05-16 22:14] LABS: ALBUMIN SERUM 2.8 g/dL (3.5-5.0); BILIRUBIN,TOTAL 0.5 mg/dL (0.2-2.0); BUN/CREATININE RATIO 10.71; CALCIUM SERUM 8.1 mg/dL (8.4-10.2); CREATININE SERUM 1.4 mg/dL (0.6-1.4); GLOM FILT RATE Estimated 58.9 mL/min (>60); MAGNESIUM 1.4 mg/dL (1.6-3.0); PHOSPHOROUS 1.9 mg/dL (2.5-4.6); POTASSIUM 3.8 mmol/L (3.5-5.1); PROTEIN TOTAL SERUM 5.7 g/dL (6.0-8.3)
[2016-05-16 22:15] LABS: BILIRUBIN, DIRECT 0.1 mg/dL (0.0-0.2)
[2016-05-16 22:53] LABS: ARTERIAL BLD GAS O2 SATURATION 98.6 % (90.0-100.0); ARTERIAL BLOOD GAS ART SITE ARTERIAL LINE; ARTERIAL BLOOD GAS CARBOXY HB 0.2 %sat (0.0-9.0); ARTERIAL BLOOD GAS DELIVERY VENT; ARTERIAL BLOOD GAS HCO3 26.1 mmol/L; ARTERIAL BLOOD GAS MET HB 0.7 %sat (0.0-2.0); ARTERIAL BLOOD GAS PCO2 38.6 mmHg (35.0-45.0); ARTERIAL BLOOD GAS VENT MODE AC; ARTERIAL BLOOD GAS pH 7.439 (7.350-7.450); ARTERIAL DRAW? YES
== END 2016-05-16 14:19 | disposition expired | DRG 917 ==
LOC: CED 23:12 → CEDOF 05-16 02:00 → CICCU3 05-16 04:01
PROVIDERS: Emergency Medicine; Internal Medicine; Nurse Practitioner
PROC: 5A1945Z Respiratory Ventilation, 24-96 Consecutive Hours (ICD-10-PCS; 2016-05-16)
PROC: 05H333Z Insertion of Infusion Device into Right Innominate Vein, Percutaneous Approach (ICD-10-PCS; 2016-05-16)
PROC: 30233N1 Transfusion of Nonautologous Red Blood Cells into Peripheral Vein, Percutaneous Approach (ICD-10-PCS; principal; 2016-05-16 22:44)
DX: T40.5X1A Poisoning by cocaine, accidental (unintentional), initial encounter (principal); I60.9 Nontraumatic subarachnoid hemorrhage, unspecified; J96.01 Acute respiratory failure with hypoxia; K72.00 Acute and subacute hepatic failure without coma; G93.1 Anoxic brain damage, not elsewhere classified; J69.0 Pneumonitis due to inhalation of food and vomit; T68.XXXA Hypothermia, initial encounter; N17.9 Acute kidney failure, unspecified; E87.4 Mixed disorder of acid-base balance; T40.601A Poisoning by unspecified narcotics, accidental (unintentional), initial encounter; T42.4X1A Poisoning by benzodiazepines, accidental (unintentional), initial encounter; E78.5 Hyperlipidemia, unspecified; I10 Essential (primary) hypertension; Z86.73 Personal history of transient ischemic attack (TIA), and cerebral infarction without residual deficits; F14.10 Cocaine abuse, uncomplicated; F11.10 Opioid abuse, uncomplicated; R73.9 Hyperglycemia, unspecified
CPT/HCPCS: 36556; 36600; 51702; 70450; 71010; 78610; 80048; 80053; 80076; 80307; 81003; 82150; 82248; 82330; 82550; 82553; 82803; 82947; 82977; 83036; 83605; 83690; 83735; 83930; 83935; 84100; 84484; 84703; 85025; 85610; 85730; 86705; 86707; 86850; 86900; 86901; 86923; 87040; 87070; 87205; 87340; 87350; 87806; 92950; 93005; 94002; 94003; 94760; 96361; 96374; 96375; 96376; 99291; A9548; J0171; J0461; J0696; J1815; J1956; J2020; J2543; J2597; J2930; J3475; P9016

== ENCOUNTER 2016-05-16 14:20 | Inpatient (IN) | payer OTHER ==
--- NOTE | ~2016-05-16 | CR72 ---
[facility] A Service of [facility] RADIOLOGY TEXT RESULTS PATIENT: SARAH BETH RHODES LOCATION: [address] : [birth year] UNIT #: [id number] AGE: [address]: GILBERTO SEX: F ORDER DR: [id number] [facility] [address] [place], [place] [address] [id number] I MR#: [id number] #: [id number] NAME: SARAH BETH RHODES. : 1990 SEX: F STUDY DATE/TIME: 05/17/2016 3:59 UNIT: [facility] ROOM: [facility] STUDY DESCRIPTION: CR Chest Single View Portable Attending Physician: Gilberto Ordering Physician: Chika Parry M.D. Primary Care Physician: [facility] MEDICAL IMAGING REPORT This report is preliminary unless electronic signature is present EXAM Portable chest, 05/17/2016. HISTORY Respiratory failure, intubated, follow up infiltrates. Respiratory failure for 2 days, overdose. FINDINGS The cardiac and mediastinal structures are stable compared with 05/16/2016. Nasogastric tube has been inserted with the tip in the mid stomach. Endotracheal tube is unchanged. Interval decrease in the left basilar infiltrate. Ill-defined infiltrates in the right lung are stable. No pneumothorax. IMPRESSION 1. Interval insertion of the nasogastric tube with tip in the midgastric region compared with 05/16/2016. 2. Decrease in the infiltrate in the left lung base. Right lung infiltrates are stable. Dictated by... Christofer Gu M.D. THIS IS AN ELECTRONICALLY VERIFIED REPORT Christofer Gu M.D. at 05/17/2016 11:22 PM PRASANNA/rikki TD: 05/17/2016 10:48 JOB #: [id number] MEDICAL IMAGING REPORT [facility] A Service of [facility] RADIOLOGY TEXT RESULTS PATIENT: SARAH BETH RHODES LOCATION: [facility] : [birth year] UNIT #: [id number] AGE: [address]: GILBERTO SEX: F ORDER DR: SANTIAGO
--- NOTE | ~2016-05-16 | EKG ---
PATIENT: SARAH BETH RHODES UNIT #: [id number] Ventricular Rate: 104 BPM Atrial Rate: 104 BPM P-R Interval: 144 ms QRS Duration: 84 ms Q-T Interval: 352 ms QTC Calculation(Bezet): 462 ms P Bamberg: 91 degrees Calculated R Bamberg: 71 degrees Calculated T Bamberg: 55 degrees Diagnosis Line: Sinus tachycardia Diagnosis Line: Otherwise normal ECG Diagnosis Line: When compared with ECG of 16-MAY-2016 00:04, Diagnosis Line: QRS duration has decreased Diagnosis Line: ST no longer depressed in Inferior leads Diagnosis Line: Confirmed by DIANA RIVERS MD ([id number]) on 05/17/2016 Diagnosis Line: 11:17:36 PM INTERPRETING MD: TITA BA
[2016-05-17 01:49] LABS: BASOPHIL% 0.2 % (0-2.5); EOSINOPHIL% 0.6 % (0.0-7.0); HEMATOCRIT 28.4 % (35.0-45.0); HEMOGLOBIN 9.3 gm/dL (12.0-16.0); LYMPHOCYTE# 0.5 X10e3 (1.0-3.5); LYMPHOCYTE% 6.2 % (17.0-45.0); MEAN CELL VOLUME 93.8 FL (83-96); MEAN CORPUSCULAR HEMOGLOBIN 30.7 PG (28-34); MEAN CORPUSCULAR HGB CONC 32.8 g/dL (30-36); MEAN PLATELET VOLUME 8.8 FL (6.5-11.5); MONOCYTE# 0.2 X10e3 (0-1.0); MONOCYTE% 2.4 % (3.0-12.0); NEUTROPHIL# 7.4 X10e3 (1.5-7.1); NEUTROPHIL% 90.6 % (40-75); PLATELET COUNT 216 X10e3 (140-420); RED BLOOD COUNT 3.03 X10e (3.90-5.30); RED CELL DISTRIBUTION WIDTH 13.9 % (11.0-15.5); WHITE BLOOD COUNT 8.1 X10e3 (4.0-10.5)
[2016-05-17 01:51] LABS: DIFF IND NO
[2016-05-17 02:03] LABS: INR 1.5; PARTIAL THROMBOPLASTIN TIME 28.6 SECONDS (23.5-31.3); PROTHROMBIN TIME (PATIENT) 15.6 SECONDS (9.6-11.5)
[2016-05-17 02:21] LABS: ALBUMIN SERUM 2.7 g/dL (3.5-5.0); ALKALINE PHOSPHATASE 59 U/L (32-92); ALT (SGPT) 135 U/L (10-40); AMYLASE 40 U/L (0-46); AST (SGOT) 197 U/L (10-42); BILIRUBIN, DIRECT 0.2 mg/dL (0.0-0.2); BILIRUBIN,TOTAL 0.7 mg/dL (0.2-2.0); BLOOD UREA NITROGEN 13 mg/dL (9-23); BUN/CREATININE RATIO 10.83; CARBON DIOXIDE 26 mmol/L (22-31); CHLORIDE 119 mmol/L (100-111); CREATININE SERUM 1.2 mg/dL (0.6-1.4); GGT-GAMMA GLUTAMYL TRANSP 74 IU/L (5-24); GLOM FILT RATE Estimated ABOVE60 mL/min (>60); GLUCOSE FASTING 158 mg/dL (70-110); LIPASE 38 U/L (22-51); MAGNESIUM 1.8 mg/dL (1.6-3.0); PHOSPHOROUS 2.8 mg/dL (2.5-4.6); POTASSIUM 3.6 mmol/L (3.5-5.1); PROTEIN TOTAL SERUM 5.5 g/dL (6.0-8.3); SODIUM 147 mmol/L (135-145)
[2016-05-17 02:41] LABS: ARTERIAL BLD GAS O2 SATURATION 95.8 % (90.0-100.0); ARTERIAL BLOOD GAS CARBOXY HB 0.2 %sat (0.0-9.0); ARTERIAL BLOOD GAS HCO3 26.1 mmol/L; ARTERIAL BLOOD GAS MET HB 0.8 %sat (0.0-2.0); ARTERIAL BLOOD GAS PO2 93.5 mmHg (80.0-100); ARTERIAL BLOOD GAS pH 7.325 (7.350-7.450)
[2016-05-17 02:42] LABS: ARTERIAL BLOOD GAS ART SITE ARTERIAL LINE; ARTERIAL BLOOD GAS DELIVERY VENT; ARTERIAL BLOOD GAS PCO2 50.1 mmHg (35.0-45.0); ARTERIAL BLOOD GAS VENT MODE AC; ARTERIAL DRAW? YES
[2016-05-17 04:04] LABS: %MB 0.6 % (0.0-4.0); MB 41.4 ng/ml
[2016-05-17 05:52] LABS: BASOPHIL% 0.1 % (0-2.5); LYMPHOCYTE# 0.2 X10e3 (1.0-3.5); LYMPHOCYTE% 2.3 % (17.0-45.0); MEAN CELL VOLUME 93.1 FL (83-96); MEAN CORPUSCULAR HGB CONC 33.3 g/dL (30-36); MEAN PLATELET VOLUME 8.9 FL (6.5-11.5); MONOCYTE# 0.1 X10e3 (0-1.0); MONOCYTE% 1.4 % (3.0-12.0); NEUTROPHIL# 9.7 X10e3 (1.5-7.1); NEUTROPHIL% 96.2 % (40-75); PLATELET COUNT 203 X10e3 (140-420); RED CELL DISTRIBUTION WIDTH 13.4 % (11.0-15.5)
[2016-05-17 06:00] LABS: DIFF IND NO
[2016-05-17 06:07] LABS: INR 1.6; PROTHROMBIN TIME (PATIENT) 16.6 SECONDS (9.6-11.5)
[2016-05-17 06:29] LABS: ARTERIAL BLD GAS O2 SATURATION 99.1 % (90.0-100.0); ARTERIAL BLOOD GAS HCO3 23.7 mmol/L; ARTERIAL BLOOD GAS MET HB 0.8 %sat (0.0-2.0); ARTERIAL BLOOD GAS PCO2 38.1 mmHg (35.0-45.0); ARTERIAL BLOOD GAS pH 7.402 (7.350-7.450)
[2016-05-17 06:32] LABS: ARTERIAL BLOOD GAS ALLEN TEST NORMAL; ARTERIAL BLOOD GAS ART SITE ARTERIAL LINE; ARTERIAL BLOOD GAS DELIVERY VENT; ARTERIAL BLOOD GAS VENT MODE AC; ARTERIAL DRAW? YES
[2016-05-17 06:32] LABS: ALBUMIN SERUM 3.6 g/dL (3.5-5.0); ALKALINE PHOSPHATASE 52 U/L (32-92); ALT (SGPT) 126 U/L (10-40); AMYLASE 31 U/L (0-46); AST (SGOT) 184 U/L (10-42); BILIRUBIN, DIRECT 0.1 mg/dL (0.0-0.2); BILIRUBIN,TOTAL 0.3 mg/dL (0.2-2.0); BLOOD UREA NITROGEN 10 mg/dL (9-23); CALCIUM SERUM 8.6 mg/dL (8.4-10.2); CARBON DIOXIDE 24 mmol/L (22-31); CHLORIDE 120 mmol/L (100-111); GGT-GAMMA GLUTAMYL TRANSP 70 IU/L (5-24); GLOM FILT RATE Estimated ABOVE60 mL/min (>60); GLUCOSE FASTING 148 mg/dL (70-110); LIPASE 27 U/L (22-51); MAGNESIUM 1.8 mg/dL (1.6-3.0); PHOSPHOROUS 2.5 mg/dL (2.5-4.6); POTASSIUM 4.5 mmol/L (3.5-5.1); PROTEIN TOTAL SERUM 6.3 g/dL (6.0-8.3); SODIUM 147 mmol/L (135-145)
[2016-05-17 09:48] LABS: HEMOGLOBIN 8.6 gm/dL (12.0-16.0); LYMPHOCYTE# 0.2 X10e3 (1.0-3.5); LYMPHOCYTE% 2.2 % (17.0-45.0); MEAN CELL VOLUME 92.6 FL (83-96); MEAN CORPUSCULAR HEMOGLOBIN 30.8 PG (28-34); MEAN CORPUSCULAR HGB CONC 33.3 g/dL (30-36); MEAN PLATELET VOLUME 9.3 FL (6.5-11.5); MONOCYTE# 0.1 X10e3 (0-1.0); MONOCYTE% 0.8 % (3.0-12.0); NEUTROPHIL# 10.7 X10e3 (1.5-7.1); PLATELET COUNT 189 X10e3 (140-420); RED CELL DISTRIBUTION WIDTH 13.5 % (11.0-15.5); WHITE BLOOD COUNT 11.1 X10e3 (4.0-10.5)
[2016-05-17 09:49] LABS: DIFF IND NO
[2016-05-17 10:19] LABS: INR 1.5; PARTIAL THROMBOPLASTIN TIME 28.3 SECONDS (23.5-31.3)
[2016-05-17 10:23] LABS: ARTERIAL BLOOD GAS HCO3 22.4 mmol/L; ARTERIAL BLOOD GAS MET HB 0.7 %sat (0.0-2.0); ARTERIAL BLOOD GAS PCO2 38.7 mmHg (35.0-45.0); ARTERIAL BLOOD GAS pH 7.371 (7.350-7.450)
[2016-05-17 10:24] LABS: ARTERIAL BLOOD GAS ALLEN TEST NORMAL; ARTERIAL BLOOD GAS ART SITE ARTERIAL LINE; ARTERIAL BLOOD GAS DELIVERY VENT; ARTERIAL BLOOD GAS VENT MODE AC; ARTERIAL DRAW? YES
[2016-05-17 10:42] LABS: ALBUMIN SERUM 3.4 g/dL (3.5-5.0); ALKALINE PHOSPHATASE 52 U/L (32-92); ALT (SGPT) 124 U/L (10-40); AMYLASE 22 U/L (0-46); AST (SGOT) 178 U/L (10-42); BILIRUBIN, DIRECT 0.1 mg/dL (0.0-0.2); BILIRUBIN,TOTAL 0.5 mg/dL (0.2-2.0); BLOOD UREA NITROGEN 10 mg/dL (9-23); CALCIUM SERUM 8.6 mg/dL (8.4-10.2); CARBON DIOXIDE 23 mmol/L (22-31); CHLORIDE 121 mmol/L (100-111); CK TOTAL 5742 IU/L (26-140); GGT-GAMMA GLUTAMYL TRANSP 69 IU/L (5-24); GLOM FILT RATE Estimated ABOVE60 mL/min (>60); GLUCOSE FASTING 188 mg/dL (70-110); LIPASE 23 U/L (22-51); MAGNESIUM 1.7 mg/dL (1.6-3.0); PHOSPHOROUS 3.2 mg/dL (2.5-4.6); POTASSIUM 4.6 mmol/L (3.5-5.1); PROTEIN TOTAL SERUM 6.1 g/dL (6.0-8.3); SODIUM 148 mmol/L (135-145)
[2016-05-17 11:00] LABS: %MB 0.6 % (0.0-4.0); MB 36.8 ng/ml
[2016-05-17 12:18] LABS: ARTERIAL BLD GAS O2 SATURATION 94.2 % (90.0-100.0); ARTERIAL BLOOD GAS ALLEN TEST NORMAL; ARTERIAL BLOOD GAS ART SITE ARTERIAL LINE; ARTERIAL BLOOD GAS CARBOXY HB 0.6 %sat (0.0-9.0); ARTERIAL BLOOD GAS DELIVERY VENT; ARTERIAL BLOOD GAS HCO3 21.9 mmol/L; ARTERIAL BLOOD GAS MET HB 0.6 %sat (0.0-2.0); ARTERIAL BLOOD GAS PCO2 31.8 mmHg (35.0-45.0); ARTERIAL BLOOD GAS PO2 66.3 mmHg (80.0-100); ARTERIAL BLOOD GAS VENT MODE AC; ARTERIAL BLOOD GAS pH 7.446 (7.350-7.450); ARTERIAL DRAW? YES
[2016-05-17 13:53] LABS: HEMATOCRIT 23.6 % (35.0-45.0); HEMOGLOBIN 7.8 gm/dL (12.0-16.0); LYMPHOCYTE# 0.3 X10e3 (1.0-3.5); LYMPHOCYTE% 3.2 % (17.0-45.0); MEAN CELL VOLUME 93.6 FL (83-96); MEAN CORPUSCULAR HEMOGLOBIN 30.9 PG (28-34); MEAN CORPUSCULAR HGB CONC 33.1 g/dL (30-36); MEAN PLATELET VOLUME 9.3 FL (6.5-11.5); MONOCYTE# 0.2 X10e3 (0-1.0); MONOCYTE% 1.5 % (3.0-12.0); NEUTROPHIL# 9.8 X10e3 (1.5-7.1); NEUTROPHIL% 95.3 % (40-75); PLATELET COUNT 178 X10e3 (140-420); RED BLOOD COUNT 2.52 X10e (3.90-5.30); WHITE BLOOD COUNT 10.3 X10e3 (4.0-10.5)
[2016-05-17 13:58] LABS: ARTERIAL BLOOD GAS ALLEN TEST NORMAL; ARTERIAL BLOOD GAS ART SITE ARTERIAL LINE; ARTERIAL BLOOD GAS DELIVERY VENT; ARTERIAL BLOOD GAS HCO3 21.6 mmol/L; ARTERIAL BLOOD GAS MET HB 0.6 %sat (0.0-2.0); ARTERIAL BLOOD GAS PCO2 32.1 mmHg (35.0-45.0); ARTERIAL BLOOD GAS VENT MODE AC; ARTERIAL BLOOD GAS pH 7.436 (7.350-7.450); ARTERIAL DRAW? YES
[2016-05-17 14:04] LABS: DIFF IND NO
[2016-05-17 14:10] LABS: INR 1.4; PARTIAL THROMBOPLASTIN TIME 29.6 SECONDS (23.5-31.3); PROTHROMBIN TIME (PATIENT) 15.4 SECONDS (9.6-11.5)
[2016-05-17 14:13] LABS: ALBUMIN SERUM 3.2 g/dL (3.5-5.0); ALKALINE PHOSPHATASE 50 U/L (32-92); ALT (SGPT) 110 U/L (10-40); AMYLASE 18 U/L (0-46); AST (SGOT) 157 U/L (10-42); BILIRUBIN, DIRECT 0.1 mg/dL (0.0-0.2); BILIRUBIN,INDIRECT 0.4 mg/dL (0.0-0.9); BILIRUBIN,TOTAL 0.5 mg/dL (0.2-2.0); BLOOD UREA NITROGEN 11 mg/dL (9-23); CALCIUM SERUM 8.5 mg/dL (8.4-10.2); CARBON DIOXIDE 22 mmol/L (22-31); CHLORIDE 123 mmol/L (100-111); CREATININE SERUM 1.1 mg/dL (0.6-1.4); GGT-GAMMA GLUTAMYL TRANSP 62 IU/L (5-24); GLOM FILT RATE Estimated ABOVE60 mL/min (>60); GLUCOSE FASTING 203 mg/dL (70-110); LIPASE 20 U/L (22-51); MAGNESIUM 1.8 mg/dL (1.6-3.0); PHOSPHOROUS 2.7 mg/dL (2.5-4.6); POTASSIUM 4.1 mmol/L (3.5-5.1); PROTEIN TOTAL SERUM 5.8 g/dL (6.0-8.3); SODIUM 150 mmol/L (135-145)
[2016-05-17 16:32] LABS: %MB 0.5 % (0.0-4.0); MB 23.3 ng/ml
[2016-05-17 17:44] LABS: HEMATOCRIT 21.9 % (35.0-45.0); HEMOGLOBIN 7.2 gm/dL (12.0-16.0); LYMPHOCYTE# 0.4 X10e3 (1.0-3.5); LYMPHOCYTE% 4.1 % (17.0-45.0); MEAN CELL VOLUME 93.1 FL (83-96); MEAN CORPUSCULAR HEMOGLOBIN 30.5 PG (28-34); MEAN CORPUSCULAR HGB CONC 32.8 g/dL (30-36); MEAN PLATELET VOLUME 9.3 FL (6.5-11.5); MONOCYTE# 0.2 X10e3 (0-1.0); MONOCYTE% 2.4 % (3.0-12.0); NEUTROPHIL# 9.2 X10e3 (1.5-7.1); NEUTROPHIL% 93.5 % (40-75); PLATELET COUNT 156 X10e3 (140-420); RED BLOOD COUNT 2.35 X10e (3.90-5.30); WHITE BLOOD COUNT 9.8 X10e3 (4.0-10.5)
[2016-05-17 17:46] LABS: DIFF IND YES
[2016-05-17 18:12] LABS: INR 1.4; PARTIAL THROMBOPLASTIN TIME 29.3 SECONDS (23.5-31.3); PROTHROMBIN TIME (PATIENT) 14.5 SECONDS (9.6-11.5)
[2016-05-17 18:19] LABS: ANISOCYTOSIS SL; PLATELET ESTIMATE NORMAL (NORMAL)
[2016-05-17 18:20] LABS: POIKILOCYTOSIS SL
[2016-05-17 18:33] LABS: ALBUMIN SERUM 2.8 g/dL (3.5-5.0); ALKALINE PHOSPHATASE 50 U/L (32-92); ALT (SGPT) 99 U/L (10-40); AMYLASE 14 U/L (0-46); AST (SGOT) 138 U/L (10-42); BILIRUBIN, DIRECT 0.1 mg/dL (0.0-0.2); BILIRUBIN,INDIRECT 0.2 mg/dL (0.0-0.9); BILIRUBIN,TOTAL 0.3 mg/dL (0.2-2.0); BLOOD UREA NITROGEN 10 mg/dL (9-23); CALCIUM SERUM 8.5 mg/dL (8.4-10.2); CARBON DIOXIDE 23 mmol/L (22-31); CHLORIDE 122 mmol/L (100-111); GGT-GAMMA GLUTAMYL TRANSP 57 IU/L (5-24); GLOM FILT RATE Estimated ABOVE60 mL/min (>60); GLUCOSE FASTING 164 mg/dL (70-110); LIPASE 18 U/L (22-51); MAGNESIUM 2.1 mg/dL (1.6-3.0); PHOSPHOROUS 2.9 mg/dL (2.5-4.6); POTASSIUM 4.3 mmol/L (3.5-5.1); PROTEIN TOTAL SERUM 5.5 g/dL (6.0-8.3); SODIUM 148 mmol/L (135-145)
[2016-05-17 19:21] LABS: URINE APPEARANCE CLEAR; URINE BILIRUBIN NEG (NEG); URINE BLOOD TRACE (NEG); URINE COLOR YELLOW; URINE GLUCOSE NEG (NEG); URINE KETONE NEG (NEG); URINE LEUKOCYTE ESTERASE NEG (NEG); URINE NITRATE NEG (NEG); URINE PROTEIN NEG (NEG); URINE SPECIFIC GRAVITY 1.008 (1.003-1.035); URINE UROBILINOGEN 0.2 MG/DL (NEG)
[2016-05-17 19:23] LABS: URBCS1 AUWI 0-2 /[HPF] (0-2); URINE BACTERIA AUWI NEG (NEGATIVE); URINE SQUAMOUS EPITHELIAL CELL NONE SEEN /[HPF]; UWBCS1 AUWI 0-2 (0-5)
[2016-05-17 21:17] LABS: BASOPHIL% 0.1 % (0-2.5); HEMATOCRIT 20.6 % (35.0-45.0); LYMPHOCYTE# 0.5 X10e3 (1.0-3.5); LYMPHOCYTE% 4.3 % (17.0-45.0); MEAN CELL VOLUME 93.3 FL (83-96); MEAN CORPUSCULAR HEMOGLOBIN 29.8 PG (28-34); MEAN PLATELET VOLUME 9.2 FL (6.5-11.5); MONOCYTE# 0.3 X10e3 (0-1.0); NEUTROPHIL# 10.2 X10e3 (1.5-7.1); NEUTROPHIL% 92.6 % (40-75); PLATELET COUNT 147 X10e3 (140-420); RED BLOOD COUNT 2.21 X10e (3.90-5.30); RED CELL DISTRIBUTION WIDTH 13.9 % (11.0-15.5); WHITE BLOOD COUNT 11.1 X10e3 (4.0-10.5)
[2016-05-17 21:24] LABS: DIFF IND NO; HEMOGLOBIN 6.6 gm/dL (12.0-16.0)
[2016-05-17 21:41] LABS: ALBUMIN SERUM 3.4 g/dL (3.5-5.0); ALKALINE PHOSPHATASE 43 U/L (32-92); ALT (SGPT) 94 U/L (10-40); AMYLASE 14 U/L (0-46); AST (SGOT) 129 U/L (10-42); BILIRUBIN, DIRECT 0.1 mg/dL (0.0-0.2); BILIRUBIN,INDIRECT 0.5 mg/dL (0.0-0.9); BILIRUBIN,TOTAL 0.6 mg/dL (0.2-2.0); BLOOD UREA NITROGEN 11 mg/dL (9-23); CARBON DIOXIDE 22 mmol/L (22-31); CHLORIDE 123 mmol/L (100-111); CREATININE SERUM 1.1 mg/dL (0.6-1.4); GGT-GAMMA GLUTAMYL TRANSP 52 IU/L (5-24); GLOM FILT RATE Estimated ABOVE60 mL/min (>60); GLUCOSE FASTING 156 mg/dL (70-110); LIPASE 17 U/L (22-51); MAGNESIUM 2.2 mg/dL (1.6-3.0); PHOSPHOROUS 2.7 mg/dL (2.5-4.6); POTASSIUM 4.1 mmol/L (3.5-5.1); SODIUM 152 mmol/L (135-145)
[2016-05-17 21:53] LABS: INR 1.3; PARTIAL THROMBOPLASTIN TIME 29.7 SECONDS (23.5-31.3)
== END 2016-05-18 10:10 | DRG 81 ==
LOC: CICCU3 14:20
PROVIDERS: Internal Medicine
PROC: B24BYZZ Ultrasonography of Heart with Aorta using Other Contrast (ICD-10-PCS; principal; 2016-05-17)
PROC: 30233N1 Transfusion of Nonautologous Red Blood Cells into Peripheral Vein, Percutaneous Approach (ICD-10-PCS; 2016-05-17)
CPT/HCPCS: 36600; 71010; 80053; 81003; 82150; 82247; 82248; 82330; 82550; 82553; 82803; 82947; 82977; 83690; 83735; 84100; 84484; 85025; 85610; 85730; 87086; 88307; 88313; 88331; 93005; 93306; 94003; 94760; J0610; J1170; J1644; J1815; J1940; J2310; J2543; J3475; P9016; P9045